=== PATIENT | male | born 2000 | race Caucasian/White ===

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

== ENCOUNTER 2018-10-04 11:03 | Emergency (ER) | payer OTHER ==
[2018-10-04 11:34] VITALS: BP 118/74
--- NOTE | 2018-10-04 11:47 | UC ---
Throat Pain/Nasal [place] HPI - HPI Summary HPI Summary: nasal congestion , cough x 1 days body aches, feverish mild dry cough no sore throat - History of Current Complaint Chief Complaint: UCRespiratory Stated Complaint: SWEATS, NAUSEA Time Seen by Provider: 10/04/18 11:36 Hx Obtained From: Patient Onset/Duration: Gradual Onset, Lasting Days - 1, Still Present Severity: Moderate Pain Intensity: 0 Cough: Nonproductive Associated Signs & Symptoms: Positive: Sinus Discomfort, Nasal Discharge, Fever. Negative: Rash - Allergies/Home Medications Allergies/Adverse Reactions: Allergies Allergy/AdvReac Type Severity Reaction Status Date / Time No Known Allergies Allergy Verified 10/04/18 11:29 Home Medications: Home Medications NK [No Home Medications Reported] 10/04/18 [History Confirmed 10/04/18] PMH/Surg Hx/FS Hx/Imm Hx Previously Healthy: Yes Other History Of: Negative For: HIV, Hepatitis B, Hepatitis C, Anticoagulant Therapy - Surgical History Surgical History: None - Family History Known Family History: Negative: Cardiac Disease, Hypertension - Social History Alcohol Use: Occasionally Substance Use Type: None Smoking Status (MU): Never Smoked Tobacco Review of Systems Constitutional: Fever, Chills, Fatigue Skin: Negative Eyes: Negative ENT: Nasal Discharge, Sinus Congestion Respiratory: Cough Cardiovascular: Negative Is Patient Immunocompromised?: No All Other Systems Reviewed And Are Negative: Yes Physical Exam Triage Information Reviewed: Yes Appearance: Well-Appearing, No Pain Distress, Well-Nourished Vital Signs: Initial Vital Signs Temp 98.7 F 10/04/18 11:28 Pulse 80 10/04/18 11:28 Resp 16 10/04/18 11:28 BP 118/74 10/04/18 11:28 Pulse Ox 99 10/04/18 11:28 Vital Signs Reviewed: Yes Eye Exam: Normal Eyes: Positive: Conjunctiva Clear ENT: Positive: Normal ENT inspection, Hearing grossly normal, Pharynx normal, Nasal congestion, Nasal drainage, TMs normal. Negative: Pharyngeal erythema, TM bulging, TM dull, TM red, Tonsillar swelling, Tonsillar exudate Neck exam: Normal Neck: Positive: Supple, Nontender, No Lymphadenopathy Respiratory: Positive: Chest non-tender, Lungs clear, Normal breath sounds Cardiovascular: Positive: RRR, No Murmur, Pulses Normal Abdominal Exam: Normal Skin Exam: Normal Throat Pain/Nasal Course/Dx - Differential Dx/Diagnosis Provider Diagnoses: uri Discharge - Sign-Out/Discharge Documenting (check all that apply): Patient Departure All imaging exams completed and their final reports reviewed: No Studies - Discharge Plan Condition: Stable Disposition: HOME Patient Education Materials: Upper Respiratory Infection (DC) Forms: *School Release Referrals: No Primary Care Phys,NOPCP [Primary Care Provider] - If Needed - Billing Disposition and Condition Condition: STABLE Disposition: Home
== END 2018-10-04 11:54 | disposition home or self-care (01) ==
LOC: UCCORT 11:03
DX: J06.9 Acute upper respiratory infection, unspecified (principal)
CPT/HCPCS: 99211; G0463

== ENCOUNTER 2019-03-23 14:47 | Emergency (ER) | payer OTHER ==
[2019-03-23 15:07] VITALS: BP 127/67
[2019-03-23] MEDS ORDERED: Ibuprofen TAB* 600 MG PO ONE (15:11)
--- NOTE | 2019-03-23 15:21 | UC ---
FLU HPI - HPI Summary HPI Summary: ONSET 4 DAYS AGO WITH FAT[facility]. HAS A HEADACHE, SLIGHTLY SCRATCY THROAT. EYES FEEL HEAVY AND HURT. CHILLS. CHEST CONGESTION AND COUGH. NAUSEA ON AND OFF. NO VOMITING OR DIARRHEA - History of Current Complaint Chief Complaint: UCRespiratory Stated Complaint: BODY ACHES,SORE THROAT Time Seen by Provider: 03/23/19 14:59 Hx Obtained From: Patient Onset/Duration: Sudden Onset, Lasting Days Severity Currently: Moderate Severity Initially: Severe Pain Intensity: 8 - Allergy/Home Medications Allergies/Adverse Reactions: Allergies Allergy/AdvReac Type Severity Reaction Status Date / Time No Known Allergies Allergy Verified 03/23/19 14:58 Home Medications: Home Medications Ibuprofen TAB* [Advil TAB*] 600 mg PO Q6H PRN 03/23/19 [History Confirmed ] PMH/Surg Hx/FS Hx/Imm Hx Previously Healthy: Yes Other History Of: Negative For: HIV, Hepatitis B, Hepatitis C, Anticoagulant Therapy - Surgical History Surgical History: None - Family History Known Family History: Negative: Cardiac Disease, Hypertension - Social History Alcohol Use: Rare Substance Use Type: None Smoking Status (MU): Never Smoked Tobacco Review of Systems All Other Systems Reviewed And Are Negative: Yes Constitutional: Positive: Fever, Chills, Fatigue Skin: Positive: Negative Eyes: Positive: Negative ENT: Positive: Sore Throat, Sinus Congestion, Sinus Pain/Tenderness Respiratory: Positive: Cough Cardiovascular: Positive: Negative Gastrointestinal: Positive: Negative Genitourinary: Positive: Negative Motor: Positive: Negative Neurovascular: Positive: Negative Musculoskeletal: Positive: Arthralgia, Myalgia Neurological: Positive: Headache Psychological: Positive: Negative Is Patient Immunocompromised?: No Physical Exam Triage Information Reviewed: Yes Appearance: Well-Nourished, Ill-Appearing, Pain Distress Vital Signs: Initial Vital Signs Temp 101.2 F 03/23/19 14:59 Pulse 100 03/23/19 14:59 Resp 15 03/23/19 14:59 BP 127/67 03/23/19 14:59 Pulse Ox 98 03/23/19 14:59 Vital Signs Reviewed: Yes Eye Exam: Normal ENT: Positive: Pharyngeal erythema, TMs normal, Tonsillar swelling, Tonsillar exudate Dental Exam: Normal Neck exam: Normal Respiratory Exam: Normal Respiratory: Positive: Chest non-tender, Lungs clear, Normal breath sounds Cardiovascular Exam: Normal Cardiovascular: Positive: No Murmur, Pulses Normal, Tachycardia Abdominal Exam: Normal Bowel Sounds: Positive: Present Musculoskeletal Exam: Normal Neurological Exam: Normal Psychological Exam: Normal Skin Exam: Normal Flu Course/Dx - Course Course Of Treatment: hx obtained, exam performed, meds reviewed, rapid flu and strep obtained and were both negative, was exposed to mono. blood work obtained. - Differential Dx/Diagnosis Differential Diagnosis/HQI/PQRI: Bronchitis, Influenza, Upper Respiratory Infection Provider Diagnosis: Fever, Pharyngitis, Lymphadenopathy of head and neck Discharge - Sign-Out/Discharge Documenting (check all that apply): Patient Departure All imaging exams completed and their final reports reviewed: No Studies - Discharge Plan Condition: Stable Disposition: HOME Patient Education Materials: Viral Syndrome (ED) Referrals: No Primary Care Phys,NOPCP [Primary Care Provider] - Additional Instructions: 1. your flu and strep were negative 2. Continue with ibuprofen 400 -600 mg every 4-6 hours 3. Lost of fluids and rest 4. your blood work will be available by Wednesday, we will call with any positive results. feel free to call in a couple days if you do not hear from us. 5. Due to your exposure of mono, it is highly likely that is what is causeing your illness, REST, FLUIDS and follow up with health center if not improving in the next week. - Billing Disposition and Condition Condition: STABLE Disposition: Home
[2019-03-23 15:38] LABS: Influenza A Molecular NEGATIVE (Negative); Influenza B Molecular NEGATIVE (Negative)
[2019-03-25 11:51] LABS: EBV Capsid Ag IgG Ab Positive (Negative); EBV Capsid Ag IgM Ab Negative (Negative); Epstein-Barr Nuclear Antigen Positive (Negative)
== END 2019-03-23 15:54 | disposition home or self-care (01) ==
LOC: UCCORT 14:47
DX: J02.9 Acute pharyngitis, unspecified (principal); R50.9 Fever, unspecified; R59.0 Localized enlarged lymph nodes
CPT/HCPCS: 36415; 86308; 86664; 86665; 87651; 99212; A9270-GY; G0463